=== PATIENT | female | born 1960 | race Caucasian/White ===

== ENCOUNTER 2020-06-13 10:43 | Outpatient (CLI) | payer BC, SELFPAY ==
--- NOTE | 2020-06-13 10:49 | MM_ITS ---
WS: [id number] BILATERAL DIGITAL SCREENING MAMMOGRAPHY WITH CAD CLINICAL INFORMATION: SCREENING HISTORY: Screening mammogram. No current complaints. COMPARISON: , October 19, 2018, and TECHNIQUE: Bilateral CC and MLO views. FINDINGS: Scattered fibroglandular densities bilaterally. Biopsy clip right breast. Punctate calcifications. No suspicious focal mass, asymmetry, calcifications, or architectural distortion. No evidence of malign prerna. MM/[id number] IMPRESSION: BI-RADS: 2-Benign FOLLOW UP: 1 Year Follow-up Recommend return to annual screening mammography.
== END 2020-06-13 10:44 | disposition home or self-care (01) ==
LOC: RADSHAW 10:46
PROVIDERS: PCP Family Medicine; Visit Provider Obstetrics & Gynecology
DX: Z12.31 Encounter for screening mammogram for malignant neoplasm of breast (principal)
CPT/HCPCS: 77067

== ENCOUNTER 2021-08-10 14:50 | Outpatient (CLI) | payer OTHER, SELFPAY ==
--- NOTE | 2021-08-10 15:01 | MM_ITS ---
WS: [id number] BILATERAL SCREENING DIGITAL MAMMOGRAM WITH CAD HISTORY: SCREENING COMPARISON: 06/13/2020, 05/04/2019 and 10/19/2018 Bilateral CC and MLO views submitted. Computer aided detection analyzed. Breast composition: There are scattered areas of fibroglandular density. No suspicious masses, microc alcifications or architectural distortion. Benign calcifications in each breast. Prior biopsy clip up per outer quadrant of the RIGHT breast. MM/[id number] IMPRESSION: BI-RADS: 2-Benign FOLLOW UP: 1 Year Follow-up
== END 2021-08-10 14:51 | disposition home or self-care (01) ==
LOC: RADSHAW 14:56
PROVIDERS: PCP Family Medicine; Visit Provider Family Medicine
DX: Z12.31 Encounter for screening mammogram for malignant neoplasm of breast (principal)
CPT/HCPCS: 77067

== ENCOUNTER 2021-08-31 08:01 | Emergency (ER) | payer OTHER, SELFPAY ==
[2021-08-31 08:22] VITALS: BP 252/130; PULSE 115; RESP 20; TEMP 36.9; O2SAT 94; BMI 28.8
--- NOTE | 2021-08-31 08:30 | CT_ITS ---
WS: [id number] CT HEAD NONCONTRAST HISTORY: accelerated HTN, dizziness TECHNIQUE: Contiguous axial imaging performed through the brain in 2.5 mm imaging. Bone and soft tiss ue windows. Sagittal and coronal reformats reviewed. All CT scans at [facility] use at least one of these dose optimization techniques: automated exposure control; mA and/or kV adjustment per pa tient size (includes targeted exams where dose is matched to clinical indication); or iterative recon struction. DLP: 273.01 mGy.cm COMPARISON: None available. No acute intracranial hemorrhage, midline shift or mass effect. No significant atrophy. Mild chronic microvascular ischemic type changes. Small lacunar infarct RIGHT caudate head. No large territory infarct. Ventricles: Normal size with no hydrocephalus. No inferior displacement of cerebellar tonsils. Posterior fossa is normal. Paranasal sinuses: As visualized are clear. Mastoid air cells: Well pneumatized. Calvarium and scalp: Skull is intact with no soft tissue edema or swelling. CT/CT head wo con* [id number] IMPRESSION: 1. No acute intracranial hemorrhage or edema. 2. Mild chronic microvascular ischemic disease.
--- NOTE | 2021-08-31 08:31 | XR_ITS ---
WS: [id number] PORTABLE CHEST HISTORY: dyspnea/cough COMPARISON: None available. Lungs are clear and well expanded. No pleural effusion or pneumothorax. Cardiac size: Normal. Mediastinum/Aorta: Normal mediastinum. No osseous abnormality seen. XR/XR chest 1V portable [id number] IMPRESSION: Unremarkable portable chest.
--- NOTE | 2021-08-31 08:31 | ECG_ITS ---
[facility] Test Date: 2021-08-31 Pat Name: Lizette Moreno Department: Room: Gender: Female [employer] Clerk: : 1960 Requested By: Guevara Sifuentes Order Number: [id number] Cody MD: Pan Levy M.D. Measurements Intervals [place] Rate: 104 P: 10 MT: 153 QRS: -23 QRSD: 92 T: 45 QT: 336 QTc: 443 Interpretive Statements SINUS TACHYCARDIA MODERATE VOLTAGE CRITERIA FOR LVH, CONSIDER NORMAL VARIANT [MEETS CRITERIA IN ONE OF: R(aVL), S(V1), R(V5), R(V5/V6)+S(V1)] POSSIBLE ANTERIOR MYOCARDIAL INFARCTION , PROBABLY OLD [30 ms Q WAVE IN V3/V4, OR R < 0.2 mV IN V4] ABNORMAL RHYTHM ECG No previous ECG available for comparison Electronically Signed On 08-31-2021 12:12:30 MARKETING CONTENT MANAGER by Pan Levy M.D. [id number]
--- NOTE | 2021-08-31 08:49 | ED_ITS ---
HPI - General Adult General: Chief complaint: Dizziness Stated complaint: high bp Time Seen by Provider: 08/31/21 08:01 Source: patient Mode of arrival: ambulatory Limitations: no limitations History of Present Illness: 61-year-old female presents emergency room complaining of elevated blood pressure for the last week along with dizziness. Patient states she has had dizziness for several years is no particular change she denies any chest discomfort. Onset (ago): week(s) Location: head Severity: mild Pain Consistency: intermittent Relieving factors: none Exacerbating factors: none Associated symptoms: Deny chest pain, confusion, cough, diaphoresis, decreased appetite, dyspnea, fevers/chills, headache(s), malaise, nausea, rash, palpitations, seizures, short of breath, syncope, vomiting or weakness Treatments prior to arrival: none Review of Systems Const: Denies: malaise or diaphoresis ENMT: Denies: throat pain, ear or mastoid pain, nasal discharge or nasal sreedhar estion Card: Denies: chest pain, palpitations or syncope Resp: Denies: dyspnea GI: Denies: nausea or vomiting : Denies: flank pain, difficulty voiding, dysuria, urinary frequency or urinary urgency Skin/Breast: Denies: rash Neuro: Denies: headache(s) or confusion PFSH ED PFSH: Medical History History of endometrial cancer (01/07/00) Stage IA, well-differentiated adenocarcinoma of the endometrium. Found on final pathology from a SARINA/BSO on 01/07/2020. No radiation or chemotherapy. Hyperlipidemia Hypertension Type II diabetes mellitus Surgical History History of left cataract extraction (~07/2014) Performed by Dr. Hatch. History of right breast biopsy (~10/2018) History of right cataract extraction (~05/2015) Performed by Dr. Hatch. History of total abdominal hysterectomy and bilateral salpingo-oophorectomy (01/07/00) SARINA/BSO, [place]. Per[place] Dr. Mcclure [place] [facility] [place], [place]. final path endometrial cancer Family History Father Hypertension Diabetes Stroke Sister Hypertension Diabetes Hypercholesteremia Thyroid disease Social History Smoking and tobacco status: never smoked Alcohol intake: never Physical Exam Const: COMMON NORMALS: no acute distress GENERAL APPEARANCE: cooperative and comfortable ORIENTATION/CONSCIOUSNESS: Yes awake, Yes oriented to person, Yes oriented to place and Yes oriented to time HENMT: COMMON NORMALS: normocephalic, atraumatic and hearing grossly normal bilaterally HEAD & SCALP: normocephalic and atraumatic Neck/C-Spine: COMMON NORMALS: no JVD Resp: COMMON NORMALS: normal respiratory effort, No retractions, No use of accessory muscles and clear to auscultation bilaterally AUSCULTATION: clear to auscultation bilaterally Cardio: COMMON NORMALS: no JVD, regular rate, regular rhythm and No murmurs present (Cardio) RATE: regular rate RHYTHM: regular rhythm GI: COMMON NORMALS: Soft to palpation and No hepatosplenomegaly present AUSCULTATION: Yes normoactive bowel sounds PALPATION: Yes Soft to palpation, No Tenderness to palpation present (GI), No Guarding due to palpation present (GI) and Yes No hepatosplenomegaly present Extremity: COMMON NORMALS: normal to inspection, capillary refill normal, no clubbing, cyanosis or edema, no calf tenderness and no pedal edema Neuro: SENSORIUM/ORIENTATION: Yes oriented to person, Yes oriented to place and Yes oriented to time OTHER: Neurologically intact NIH score is 0 Skin: COMMON NORMALS: no rashes or lesions noted GENERAL SKIN EXAM: no rashes or lesions noted Course Vital Signs: Vital signs: Vital Signs Temperature 98.4 F 08/31/21 08:22 Pulse Rate 105 H 08/31/21 11:04 Respiratory Rate 16 08/31/21 11:04 Blood Pressure 143/76 08/31/21 11:04 Pulse Oximetry 95 08/31/21 11:04 [facility] - General Adult Medical Decision Making Blood pressure is improved. CT of the head is negative. The dizziness exists prior to the blood pressure being elevated. Were going to add lisinopril 20 mg daily and amlodipine 10 mg daily continue her Toprol follow-up with her primary care doctor within 1 week return if has problems Medical Records I reviewed the patient's medical records. Lab Data I reviewed the patient's lab results. : 08/31/21 09:13 08/31/21 09:[address] 08/31/21 08:30 IMPRESSION: 1. No acute intracranial hemorrhage or edema. 2. Mild chronic microvascular ischemic disease. Chest X-Ray 08/31/21 08:31 IMPRESSION: Unremarkable portable chest. Laboratory Results WBC 5.6 10^3/uL (4.0-10.0) 08/31/21 09:13 RBC 5.46 10^6/uL (4.1-5.3) H 08/31/21 09:13 Hgb 14.6 g/dL (11.5-15.3) 08/31/21 09:13 Hct 44.5 % (37.0-47.0) 08/31/21 09:13 MCV 81.5 fl (81-99) 08/31/21 09:13 MCH 26.7 pg (28.0-34.0) L 08/31/21 09:13 MCHC 32.8 g/dL (30.0-36.0) 08/31/21 09:13 RDW 13.1 % (12.1-15.1) 08/31/21 09:13 Plt Count 195 10^3/cmm (130-400) 08/31/21 09:13 MPV 10.2 fL (7.4-10.4) 08/31/21 09:13 Neut % (Auto) 50.6 % 08/31/21 09:13 Lymph % (Auto) 36.7 % 08/31/21 09:13 [place] % (Auto) 8.0 % 08/31/21 09:13 Eos % (Auto) 3.7 % 08/31/21 09:13 Baso % (Auto) 0.5 % 08/31/21 09:13 Neut # (Auto) 2.84 10^3/uL (1.8-7.7) 08/31/21 09:13 Lymph # (Auto) 2.1 10^3/uL (0.8-4.8) 08/31/21 09:13 [place]orden # (Auto) 0.5 10^3/uL (0.2-0.9) 08/31/21 09:13 Eos # (Auto) 0.2 10^3/uL (0.0-0.8) 08/31/21 09:13 Baso # (Auto) 0.0 10^3/uL (0.0-0.1) 08/31/21 09:13 Nucleated RBC % (auto) 0 % 08/31/21 09:13 Nucleated RBCs # 0.0 /100WBC 08/31/21 09:13 Sodium 138 mmol/L (136-145) 08/31/21 09:13 Potassium 4.0 mmol/L (3.5-5.1) 08/31/21 09:13 Chloride 99 mmol/L (98-107) 08/31/21 09:13 Carbon Dioxide 25 mmol/L (22-29) 08/31/21 09:13 Anion Gap 18.0 (5-19) 08/31/21 09:13 BUN 9 mg/dL (8-23) 08/31/21 09:13 Creatinine 0.4 mg/dL (0.5-0.9) L 08/31/21 09:13 GFR Calculation 161.7 mL/min (90-130) H 08/31/21 09:13 Glucose 187 mg/dL (65-115) H 08/31/21 09:13 Calculated Osmolality 290 mOsm/kg (285-295) 08/31/21 09:13 Calcium 10.2 mg/dL (8.5-10.5) 08/31/21 09:13 Magnesium 1.7 mg/dL (1.7-2.3) 08/31/21 09:13 Total Bilirubin 0.7 mg/dL (0.15-1.2) 08/31/21 09:13 AST 21 U/L (0-32) 08/31/21 09:13 ALT 18 U/L (0-33) 08/31/21 09:13 Alkaline Phosphatase 84 IU/L (35-105) 08/31/21 09:13 Creatine Kinase 87 U/L (26-192) 08/31/21 09:13 Troponin T Baseline 7 ng/L (0-10) 08/31/21 09:13 Troponin T 120 Minute 7.56 ng/L (0-10) 08/31/21 10:50 Delta Troponin T 0.56 ABS# (0-10) 08/31/21 10:50 Total Protein 8.4 g/dL (6.6-8.7) 08/31/21 09:13 Albumin 5.2 g/dL (3.5-5.2) 08/31/21 09:13 Globulin 3.2 g/dL (1.3-4.6) 08/31/21 09:13 Discharge Plan Discharge Patient Disposition: Home Clinical Impression: Hypertension, Dizziness Condition: Stable Prescriptions: New amlodipine 10 mg tablet 10 mg PO DAILY Qty: 30 0RF lisinopril 20 mg tablet 20 mg PO DAILY Qty: 30 0RF No Action Levemir U-100 Insulin 100 unit/mL solution 40 unit SUBCUT BID 0RF Humulin 70/30 U-100 KwikPen 100 unit/mL (70-30) insulin pen 40 unit SUBCUT BID 0RF aspirin [Adult Aspirin Regimen] 81 mg tablet,delayed release (DR/EC) 81 mg PO DAILY 0RF metoprolol succinate 100 mg tablet extended release 24 hr 100 mg PO DAILY 0RF atorvastatin 10 mg tablet 10 mg PO DAILY 0RF calcium carbonate-vitamin D3 [Calcium 600 with Vitamin D3] 600 mg(1,500mg) - 500 unit capsule 1 cap PO DAILY 0RF metformin 500 mg tablet extended release 24 hr 500 mg PO BID 0RF Discharge Orders: Discharge ED (Routine); Ordered 08/31/21 Ordered By: Guevara Wei Referrals: Tavon Krueger MD [Primary Care Provider] - Discharge Diet: Usual diet Discharge Activity: Increase activity as tolerated Patient Instructions: Opioid Safety Activity Restrictions/Additional Instructions: Follow-up with Dr. Erickson within the next 3 to 5 days for reevaluation of your blood pressure. Coding Level of Care Code ED Building Specialist for Fan Gonzalez
[2021-08-31 08:51] VITALS: BP 252/130; PULSE 118; RESP 16; O2SAT 95
[2021-08-31] MEDS: amlodipine 10 mg Tablet PO (09:03)
[2021-08-31] MEDS: labetalol 5 mg/mL SDV 20mL 10 MG IVP (09:08)
[2021-08-31] MEDS: hyDRALAzine 20 mg/mL INJ 1 mL IVP (09:10)
[2021-08-31] MEDS: metoprolol succinate ER (24 HR) 50 mg Tablet 100 MG PO (09:13)
[2021-08-31 09:21] VITALS: BP 160/82; BP 180/85; BP 180/90; PULSE 95
[2021-08-31 09:22] LABS: Basophils % 0.5 %; Eosinophils # 0.2 10^3/uL (0.0-0.8); Eosinophils % 3.7 %; Hematocrit 44.5 % (37.0-47.0); Hemoglobin 14.6 g/dL (11.5-15.3); Lymphocytes # 2.1 10^3/uL (0.8-4.8); Lymphocytes % 36.7 %; Mean Corpuscular HGB Conc 32.8 g/dL (30.0-36.0); Mean Corpuscular Hemoglobin 26.7 pg (28.0-34.0); Mean Corpuscular Volume 81.5 fl (81-99); Mean Platelet Volume 10.2 fL (7.4-10.4); Monocytes # 0.5 10^3/uL (0.2-0.9); Neutrophils # 2.84 10^3/uL (1.8-7.7); Neutrophils % 50.6 %; Nucleated Red Blood Cells % 0 %; Platelet Count 195 10^3/cmm (130-400); Red Blood Count 5.46 10^6/uL (4.1-5.3); Red Cell Distribution Width 13.1 % (12.1-15.1); White Blood Count 5.6 10^3/uL (4.0-10.0)
[2021-08-31 09:48] VITALS: BP 103/60; PULSE 110; RESP 16; O2SAT 92
[2021-08-31 09:58] LABS: Alanine Aminotransferase 18 U/L (0-33); Albumin Level 5.2 g/dL (3.5-5.2); Alkaline Phosphatase 84 IU/L (35-105); Aspartate Amino Transferase 21 U/L (0-32); Blood Urea Nitrogen 9 mg/dL (8-23); Calcium 10.2 mg/dL (8.5-10.5); Carbon Dioxide 25 mmol/L (22-29); Chloride 99 mmol/L (98-107); Creatine Phosphokinase 87 U/L (26-192); Globulin 3.2 g/dL (1.3-4.6); Glomerular Filtration Rate 161.7 mL/min (90-130); Glucose 187 mg/dL (65-115); Magnesium 1.7 mg/dL (1.7-2.3); Osmolality Calculated 290 mOsm/kg (285-295); Sodium 138 mmol/L (136-145); Total Bilirubin 0.7 mg/dL (0.15-1.2); Total Protein 8.4 g/dL (6.6-8.7)
[2021-08-31 10:00] LABS: Troponin(5th) Baseline 7 ng/L (0-10)
--- NOTE | 2021-08-31 10:31 | ECG_ITS ---
[facility] Test Date: 2021-08-31 Pat Name: Lizette Moreno Department: Room: Gender: Female Counter Intelligence: : 1960 Requested By: Guevara Sifuentes Order Number: [id number] Cody MD: Pan Levy M.D. Measurements Intervals [place] Rate: 105 P: 31 MI: 163 QRS: -19 QRSD: 95 T: 52 QT: 351 QTc: 464 Interpretive Statements SINUS TACHYCARDIA POSSIBLE ANTERIOR MYOCARDIAL INFARCTION , PROBABLY OLD [30 ms Q WAVE IN V3/V4, OR R < 0.2 mV IN V4] ABNORMAL RHYTHM ECG Compared to ECG 08/31/2021 08:50:03 No significant changes Electronically Signed On 08-31-2021 12:16:23 KITCHEN AND BATH DESIGNER by Pan Levy M.D. [id number]
[2021-08-31 11:04] VITALS: BP 143/76; PULSE 105; RESP 16; O2SAT 95
[2021-08-31 11:31] LABS: Troponin 5 2HR 7.56 ng/L (0-10)
[2021-08-31 11:46] LABS: Troponin 5 2HR Delta 0.56 ABS# (0-10)
== END 2021-08-31 11:26 | disposition home or self-care (01) ==
PROVIDERS: Emergency Provider Family Medicine; PCP Family Medicine
DX: I10 Essential (primary) hypertension (principal); R42 Dizziness and giddiness; Z79.84 Long term (current) use of oral hypoglycemic drugs; Z79.82 Long term (current) use of aspirin; Z79.4 Long term (current) use of insulin; Z85.89 Personal history of malignant neoplasm of other organs and systems; E78.5 Hyperlipidemia, unspecified; E11.9 Type 2 diabetes mellitus without complications
CPT/HCPCS: 36415; 70450; 71045; 80053; 82550; 83735; 84484; 85025; 93005; 96374; 96375; 99284; J0360; J3490

== ENCOUNTER → 2022-03-30 10:39 | Outpatient (BNVA) | payer OTHER, SELFPAY | PROVIDERS: PCP Family Medicine; Visit Provider Family Medicine | DX: Z00.00 Encounter for general adult medical examination without abnormal findings (principal); E11.9 Type 2 diabetes mellitus without complications; I10 Essential (primary) hypertension; E78.5 Hyperlipidemia, unspecified | CPT/HCPCS: 80053; 80061; 83036; 85025 ==

== ENCOUNTER 2022-08-24 11:40 | Outpatient (CLI) | payer OTHER, SELFPAY ==
--- NOTE | 2022-08-24 11:52 | MM_ITS ---
WS: [id number] BILATERAL SCREENING DIGITAL TOMOSYNTHESIS MAMMOGRAM WITH CAD HISTORY: SCREENING COMPARISON: 08/10/2021, 06/13/2020 Bilateral CC and MLO views with tomosynthesis and synthetic mammography submitted. Computer aided det ection analyzed. Breast composition: There are scattered areas of fibroglandular density. No suspicious masses, microc alcifications or architectural distortion. Benign calcifications. MM/[place] [id number] IMPRESSION: BI-RADS: 2-Benign FOLLOW UP: 1 Year Follow-up
== END 2022-08-24 11:41 | disposition home or self-care (01) ==
LOC: RAD 11:41
PROVIDERS: PCP Family Medicine; Visit Provider Family Medicine
DX: Z12.31 Encounter for screening mammogram for malignant neoplasm of breast (principal)
CPT/HCPCS: 77063; 77067

== ENCOUNTER → 2022-10-05 11:29 | Outpatient (BNVA) | payer OTHER, SELFPAY | PROVIDERS: PCP Family Medicine; Visit Provider Family Medicine | DX: E78.5 Hyperlipidemia, unspecified (principal); I10 Essential (primary) hypertension; E11.9 Type 2 diabetes mellitus without complications | CPT/HCPCS: 80053; 80061; 83036 ==

== ENCOUNTER → 2022-11-02 10:00 | Outpatient (BNVA) | payer OTHER, SELFPAY | PROVIDERS: PCP Family Medicine; Visit Provider Podiatrist Foot & Ankle Surgery | DX: I73.9 Peripheral vascular disease, unspecified (principal); E11.621 Type 2 diabetes mellitus with foot ulcer; L97.522 Non-pressure chronic ulcer of other part of left foot with fat layer exposed; E11.42 Type 2 diabetes mellitus with diabetic polyneuropathy; M20.41 Other hammer toe(s) (acquired), right foot; M20.42 Other hammer toe(s) (acquired), left foot; Z79.4 Long term (current) use of insulin; Z79.84 Long term (current) use of oral hypoglycemic drugs | CPT/HCPCS: 73630 ==

== ENCOUNTER 2022-11-02 15:00 | Outpatient (CLI) | payer OTHER, SELFPAY | END 2022-11-02 15:01 | disposition home or self-care (01) | LOC: SPT 15:01 | PROVIDERS: PCP Family Medicine; Visit Provider Podiatrist Foot & Ankle Surgery | DX: E11.621 Type 2 diabetes mellitus with foot ulcer (principal); E11.42 Type 2 diabetes mellitus with diabetic polyneuropathy; L97.522 Non-pressure chronic ulcer of other part of left foot with fat layer exposed | CPT/HCPCS: 97760; L4361 ==

== ENCOUNTER → 2023-03-23 11:03 | Outpatient (BNVA) | payer OTHER, SELFPAY | PROVIDERS: PCP Family Medicine; Visit Provider Family Medicine | DX: E11.9 Type 2 diabetes mellitus without complications (principal); I10 Essential (primary) hypertension; E78.5 Hyperlipidemia, unspecified | CPT/HCPCS: 80053; 80061; 83036 ==

== ENCOUNTER 2023-09-06 10:46 | Outpatient (CLI) | payer OTHER, SELFPAY ==
--- NOTE | 2023-09-06 10:51 | MM_ITS ---
WS: [id number] VIEWS: MLO and CC views both breasts. 3D digital tomosynthesis is also included in this exam. Comparison made with prior exam of 05/04/2019, 06/13/2020, 08/10/2021, 08/24/2022.. Findings: There was no sign of mass, architectural distortion or suspicious calcification in either breast. Sta ble subcentimeter nodule in the central LEFT breast there are scattered areas of fibroglandular densi ty Impression: MM/[place] [id number] BI-RADS: 2-Benign finding. FOLLOW-UP: 1 Year Follow-up This mammogram was also analyzed by the Computer Aided Detection System R2 Imag e Sterile Supply Technician.
== END 2023-09-06 10:47 | disposition home or self-care (01) ==
LOC: RAD 10:46
PROVIDERS: PCP Family Medicine; Visit Provider Family Medicine
DX: Z12.31 Encounter for screening mammogram for malignant neoplasm of breast (principal)
CPT/HCPCS: 77063; 77067

== ENCOUNTER → 2024-04-05 11:19 | Outpatient (BNVA) | payer OTHER, SELFPAY | PROVIDERS: PCP Family Medicine; Visit Provider Family Medicine | DX: Z00.00 Encounter for general adult medical examination without abnormal findings (principal); I10 Essential (primary) hypertension; I73.9 Peripheral vascular disease, unspecified; E78.5 Hyperlipidemia, unspecified | CPT/HCPCS: 80053; 80061; 83036; 85025 ==

== ENCOUNTER 2024-09-07 08:23 | Outpatient (CLI) | payer MEDICARE, SELFPAY ==
--- NOTE | 2024-09-07 | MM_ITS ---
WS: [id number] Bilateral screening 3D tomosynthesis digital mammogram, 09/07/2024 8:31 AM Clinical Data: ANNUAL SCREENING Comparison: 09/06/2023, 08/24/2022, 08/10/2021, 06/13/2020, 05/04/2019, 10/19/2018, 10/06/2018, 08/26/2017, 08/13/2016, 08/01/2015, 07/19/2015, 06/22/2013, 04/21/2012, 04/01/2011, 03/19/2011, 03/06/2010, 02/18/2009, 12/29/2007, 11/18/2006. Findings: No spiculated masses or clustered calcifications are seen. There are no secondary signs of carcinoma. There are vascular calcifications. There is a biopsy clip in the right breast. There is a central nodule in the left breast unchanged. MM/MM scr BI tomosynthesis [id number] Impression: Negative bilateral mammogram unchanged. Recommend annual screening mammograms. BIRADS: 1 - Negative. FOLLOW UP: 1 Year Follow-up DENSITY: There are scattered areas of fibroglandular density. The CAD negative checker was used
== END 2024-09-07 08:24 | disposition home or self-care (01) ==
PROVIDERS: PCP Family Medicine; Visit Provider Family Medicine
DX: Z12.31 Encounter for screening mammogram for malignant neoplasm of breast (principal); R92.323 Mammographic fibroglandular density, bilateral breasts; N63.20 Unspecified lump in the left breast, unspecified quadrant
CPT/HCPCS: 77063; 77067

== ENCOUNTER → 2025-05-06 13:25 | Outpatient (BNVA) | payer MEDICARE, OTHER, SELFPAY | PROVIDERS: PCP Family Medicine; Visit Provider Podiatrist Foot & Ankle Surgery | DX: I73.9 Peripheral vascular disease, unspecified (principal); E11.42 Type 2 diabetes mellitus with diabetic polyneuropathy; M20.41 Other hammer toe(s) (acquired), right foot; M20.42 Other hammer toe(s) (acquired), left foot; L84 Corns and callosities; Z79.4 Long term (current) use of insulin | CPT/HCPCS: 99213 ==

== ENCOUNTER → 2025-05-07 10:29 | Outpatient (BNVA) | payer MEDICARE, OTHER, SELFPAY | PROVIDERS: PCP Family Medicine; Visit Provider Family Medicine | DX: I10 Essential (primary) hypertension (principal); E78.5 Hyperlipidemia, unspecified; E11.9 Type 2 diabetes mellitus without complications; R30.0 Dysuria; N39.0 Urinary tract infection, site not specified | CPT/HCPCS: 80053; 80061; 81000; 83036; 87086 ==